=== PATIENT | female | born 1985 | race African-American/Black ===

== ENCOUNTER 2016-10-01 15:26 | Emergency (ER) | payer MEDICAID ==
[~2016-10-01] VITALS: Ht 165.1 cm; Wt 79.8 kg
[~2016-10-01 15:26] MED LIST: ALBUTEROL SULF8.5 GM INH; AZITHROMYCIN250 MG ORAL; CIPRO500 MG/51 PO; CORTISPORIN EY BOTH EYES; DOXYCYCLINE MO100 MG ORAL; IBUPROFEN600 MG ORAL; MACROBID100 MG ORAL; MONISTAT 745 GM VG; NITROFURANTOIN100 M2 ORAL; NKM; PREDNISONE20 MG ORAL; PROMETHAZINE-C118 M1 ORAL; PYRIDIUM100 MG ORAL
[2016-10-01 15:39] VITALS: BP 106/63
--- NOTE | 2016-10-01 15:42 | Emergency Room Report ---
History of Present Illness General Chief Complaint: Eye Problems Source: Patient Present Illness HPI 30-year-old female presents emergency department complaining of erythema, increased lacrimation and pain to the right eye x2 days. Patient denies trauma or fall. Patient denies purulent discharge. Patient denies ill contacts with similar symptoms. Patient states she does wear false eyelashes denies contact use denies changes in vision. Patient describes pain as scratching sensation 4/ 10 in severity. She denies nausea, vomiting, fevers, chills. Denies CP, Palpitations, LOC, AMS, dizziness, Changes in Vision, Sensation, paresthesias, or a sudden severe headache. Allergies: Coded Allergies: No Known Allergies (Unverified , 07/29/12) Patient History Past Medical History: see triage record Past Surgical History: none Pertinent Family History: none Last Menstrual Period: 09/19/16 Now: No Immunizations: UTD Reviewed Nursing Documentation: PMH: Agreed, PSxH: Agreed Nursing Documentation-PMH Past Medical History: No Stated History Review of Systems All Other Systems: negative except mentioned in HPI Physical Exam Vital Signs Date Time Temp Pulse Resp B/P Pulse Ox O2 Delivery O2 Flow Rate FiO2 10/01/16 15:33 98.2 93 14 106/63 99 Room Air Sp02 EP Interpretation: reviewed, normal General Appearance: no apparent distress, alert, GCS 15, non-toxic Head: normocephalic, atraumatic Eyes: right eye fluoroscene uptake - linear fashion in the 6 o'Clock position of the Right eye, there is no involvement of the iris or pupil. Negative Som sign, right eye photophobia, bilateral eye PERRL, bilateral eye normal inspection ENT: hearing grossly normal, normal pharynx, no angioedema, normal voice Neck: full range of motion, supple/symm/no masses Respiratory: chest non-tender, lungs clear, normal breath sounds, speaking full sentences Cardiovascular #1: regular rate, rhythm, no edema Rectal: deferred Musculoskeletal: back normal, gait/station normal, normal range of motion, non- tender, no calf tenderness Neurologic: alert, oriented x3, responsive, motor strength/tone normal, sensory intact, speech normal Psychiatric: judgement/insight normal, memory normal, mood/affect normal, no suicidal/homicidal ideation Skin: normal color, no rash, warm/dry, well hydrated Medical Decision Making PA Attestation Dr. Cedillo is my supervising Physician whom patient management has been discussed with. Diagnostic Impression: Primary Impression: Corneal abrasion, right Qualified Codes: S05.01XA - Injury of conjunctiva and corneal abrasion without foreign body, right eye, initial encounter ER Course Pt. presents to the ED c/o : Right eye pain, redness, scratching sensation and increased tearing x 2 day(s). - Pt denies Contact lens use. Ddx considered but are not limited to: corneal abrasion, acute glaucoma, globe rupture, FB, Corneal Ulcer, conjunctivitis. Iridis Vital signs: are WNL, pt. is afebrile H&PE are most consistent with: corneal abrasion ORDERS: -Tetracaine and Fluorescein Stain of the Right eye: -Increase fluorescein uptake in a linear fashion in the 6 o'Clock position of the Right eye, there is no involvement of the iris or pupil. Negative Som sign. Pt. had positive relief of pain with tetracaine drops. there was negative evidence of Fb, deep ulcer, or rupture. ED INTERVENTIONS: none at this time. DISCHARGE: At this time pt. is stable for d/c to home. Will provide printed patient care instructions, and any necessary prescriptions. Care plan and follow up instructions have been discussed with the patient prior to discharge. . Last Vital Signs Date Time Temp Pulse Resp B/P Pulse Ox O2 Delivery O2 Flow Rate FiO2 10/01/16 15:33 98.2 93 14 106/63 99 Room Air Disposition: HOME, SELF-CARE Condition: Stable Scripts Ofloxacin (OCUFLOX) 5 Ml Drops 4 DROP OP TID for 5 Days, #5 ML Prov: Kesha Dias 10/01/16 Patient Instructions: Corneal Abrasion Additional Instructions: Take medications as directed. Follow up with [facility] Psych[facility] within 72 hours. Return sooner to ED if new symptoms occur, or current symptoms become worse. Kesha Dias Oct 01, 2016 15:42
[2016-10-01] MEDS ORDERED: Tetracaine 0.5% Opth Soln RIGHT EYE ONE (15:45)
[2016-10-01] MEDS ORDERED: Fluorescein Strips RIGHT EYE ONE (15:45)
[2016-10-01] MEDS ORDERED: OCUFLOX5 ML OP (16:03)
[2016-10-01 16:17] VITALS: BP 106/63
== END 2016-10-01 16:18 | disposition home or self-care (01) ==
LOC: EMR 15:50
DX: S05.01XA Injury of conjunctiva and corneal abrasion without foreign body, right eye, initial encounter (principal); X58.XXXA Exposure to other specified factors, initial encounter; Y92.9 Unspecified place or not applicable

== ENCOUNTER 2017-03-01 23:02 | Emergency (ER) | payer MEDICAID ==
[~2017-03-01] VITALS: Ht 165.1 cm; Wt 77.1 kg
[~2017-03-01 23:02] MED LIST changes: +OCUFLOX5 ML OP
[2017-03-01] MEDS ORDERED: NKM (23:12)
--- NOTE | 2017-03-01 23:32 | Emergency Room Report ---
History of Present Illness General Chief Complaint: Vaginal Source: Patient Present Illness HPI Patient presents with complaints of vaginal discharge Urinary frequency and mild burning patient reports that she was sexually active several days ago Denies any headache or visual changes denies any chest pressures of breath She had some mild cramping in the suprapubic area Denies any foul-smelling denies any other pelvic pain or rash Allergies: Coded Allergies: No Known Allergies (Unverified , 07/29/12) Patient History Past Medical History: see triage record Pertinent Family History: none Last Menstrual Period: January Reviewed Nursing Documentation: PMH: Agreed, PSxH: Agreed Nursing Documentation-PMH Past Medical History: No Stated History Review of Systems All Other Systems: negative except mentioned in HPI Physical Exam Vital Signs Date Time Temp Pulse Resp B/P Pulse Ox O2 Delivery O2 Flow Rate FiO2 03/01/17 23:07 98.2 78 16 121/76 99 Room Air Sp02 EP Interpretation: reviewed, normal General Appearance: well appearing, no apparent distress Head: normocephalic, atraumatic Eyes: bilateral eye EOMI, bilateral eye PERRL ENT: hearing grossly normal, normal pharynx, TMs + canals normal, uvula midline Neck: full range of motion, supple, no meningismus, no bony tend Respiratory: lungs clear, normal breath sounds, no rhonchi, no respiratory distress, no retraction, no accessory muscle use Cardiovascular #1: normal peripheral pulses, regular rate, rhythm, no edema, no gallop, no JVD, no murmur Gastrointestinal: normal bowel sounds, non tender, soft, no mass, no organomegaly, non-distended, no guarding, no hernia, no pulsatile mass, no rebound Genitourinary: no CVA tenderness, other - Patient refusing pelvic exam Musculoskeletal: normal inspection Neurologic: oriented x3, responsive, experimental outboard motors mechanic III-XII nml as tested, motor strength/ tone normal, sensory intact Psychiatric: mood/affect normal Skin: normal color, no rash, warm/dry, palpation normal Lymphatic: normal inspection, no adenopathy Medical Decision Making Diagnostic Impression: Primary Impression: Vaginitis Additional Impression: UTI (lower urinary tract infection) ER Course With the patient's history and examination, multiple differentials considered, including but not limited to , ectopic , ovarian torsion, gastritis, cholecystitis, pancreatitis, appendicitis Patient did refuse a pelvic exam Therefore was treated clinically urine sample did show infectious pathology as well The patient requires close outpatient followup Labs Test 03/01/17 23:26 Urine Color Yellow Urine Appearance Clear Urine pH 7 (4.5-8.0) Urine Specific [place] 1.010 (1.005-1.035) Urine Protein Negative (NEGATIVE) Urine Glucose (UA) Negative (NEGATIVE) Urine Ketones Negative (NEGATIVE) Urine Occult Blood Negative (NEGATIVE) Urine Nitrite Negative (NEGATIVE) Urine Bilirubin Negative (NEGATIVE) Urine Urobilinogen 4 MG/DL (0.0-1.0) Urine Leukocyte Esterase 2+ (NEGATIVE) Urine RBC 0-2 /HPF (0 - 2) Urine WBC 5-10 /HPF (0 - 2) Urine Squamous Epithelial Cells Many /LPF (NONE/OCC) Urine Bacteria Few /HPF (NONE) Urine HCG, Qualitative Negative Chest X-Ray Diagnostic Results Chest X-Ray Ordered: No Last Vital Signs Date Time Temp Pulse Resp B/P Pulse Ox O2 Delivery O2 Flow Rate FiO2 03/01/17 23:07 98.2 78 16 121/76 99 Room Air Status: improved Disposition: HOME, SELF-CARE Condition: Improved Scripts Ciprofloxacin Hcl* (CIPROFLOXACIN HCL*) 500 Mg Tablet 500 MG ORAL Q12H, #14 TAB 0 Refills Prov: GALA LYNCH D.O. 03/02/17 Additional Instructions: Patient is provided with the discharge instructions notified to follow up with primary doctor in the next 2-3 days otherwise return to the er with any worsening symptoms. Please note that this report is being documented using [employer] technology. This can lead to erroneous entry secondary to incorrect interpretation by the dictating instrument. GALA LYNCH D.O. Mar 01, 2017 23:32
[2017-03-01 23:39] LABS: APPEARANCE,URINE CLEAR; KETONES,URINE NEGATIVE (NEGATIVE); LEUKOCYTE ESTERASE ,URINE 2+ (NEGATIVE); NITRITE,URINE NEGATIVE (NEGATIVE); PH,URINE 7 (4.5-8.0); PROTEIN,URINE NEGATIVE (NEGATIVE); UROBILINOGEN,URINE 4 MG/DL (0.0-1.0)
[2017-03-01] MEDS ORDERED: Lidocaine 1% MPF 10mg/ml 5ml ONE (23:42)
[2017-03-01] MEDS ORDERED: Azithromycin 250mg tab ORAL ONE (23:45)
[2017-03-01 23:55] LABS: BACTERIA,URINE FEW /HPF; RBC,URINE 0-2 /HPF (0 - 2); SQUAMOUS EPITHELIAL CELL,UR MANY /LPF (NONE/OCC)
[2017-03-02] MEDS ORDERED: CIPROFLOXACIN500 M2 ORAL (00:14)
[2017-03-02 00:17] VITALS: BP 121/76
== END 2017-03-02 00:19 | disposition home or self-care (01) ==
LOC: EMR 23:34
DX: N76.0 Acute vaginitis (principal); N39.0 Urinary tract infection, site not specified
CPT/HCPCS: 81003; 81025; 96372; 99283; J0696; Q0144

== ENCOUNTER 2017-05-23 14:15 | Emergency (ER) | payer MEDICAID ==
[~2017-05-23] VITALS: Ht 165.1 cm; Wt 77.1 kg
[~2017-05-23 14:15] MED LIST changes: +CIPROFLOXACIN500 M2 ORAL
--- NOTE | 2017-05-23 14:32 | Emergency Room Report ---
History of Present Illness General Chief Complaint: Chest Pain Source: Patient Present Illness HPI 31 yo female with no pmhx p/w chest pain for 2 days. . Localized to R side area , also complaining of b/l back and shoulder pain, sharp in nature, gradual in onset, worse with movement, multiple episodes. Occurred on rest. No SOB. Denies palpitations, diaphoresis, n/v. This is the first occurrence of chest pain. Denies fever, chills, cough, abd pain. Denies trauma. No history of malignancy, recent surgeries, immobilization, DVT PE, no OCPs Denies smoking, no family history of cardiac disease at a young age. Patient also stating that she had unprotected sex one week ago, is having some white vaginal discharge. Also complains of thick white vaginal discharge, no fever chills or abdominal pain, no dysuria or hematuria Allergies: Coded Allergies: No Known Allergies (Unverified , 07/29/12) Patient History Past Medical History: see triage record Past Surgical History: none Pertinent Family History: none Last Menstrual Period: na Reviewed Nursing Documentation: PMH: Agreed, PSxH: Agreed Nursing Documentation-PMH Past Medical History: No Stated History Physical Exam Vital Signs Date Time Temp Pulse Resp B/P (MAP) Pulse Ox O2 Delivery O2 Flow Rate FiO2 05/23/17 14:17 97.9 70 18 112/71 100 Room Air Sp02 EP Interpretation: reviewed, normal General Appearance: normal inspection, well appearing, no apparent distress, alert, GCS 15, non-toxic Head: normocephalic, atraumatic Eyes: bilateral eye normal inspection, bilateral eye PERRL, bilateral eye EOMI ENT: normal ENT inspection, normal pharynx, normal voice, moist mucus membranes Neck: normal inspection, full range of motion, supple Respiratory: normal inspection, lungs clear, normal breath sounds, no respiratory distress, no retraction, no wheezing, speaking full sentences, chest symmetrical Cardiovascular #1: normal inspection, regular rate, rhythm, no edema, normal capillary refill Cardiovascular #2: 2+ radial (R), 2+ radial (L) Gastrointestinal: normal inspection, non tender, soft, non-distended, no guarding Genitourinary: other - no vaginal DC noted Musculoskeletal: normal inspection, back normal, normal range of motion, non- tender Neurologic: normal inspection, alert, oriented x3, responsive, motor strength/ tone normal, sensory intact, normal gait, speech normal Psychiatric: normal inspection, judgement/insight normal, memory normal Skin: normal inspection, normal color, no rash, warm/dry, well hydrated, normal turgor Medical Decision Making Diagnostic Impression: Primary Impression: Chest pain Additional Impression: Vaginal discharge ER Course 31 yo F with no sig pmhx p/w chest pain Plan: musculoskeletal CP/costochondritis vs. pneumothorax vs. gastritis/GERD vs PE PE less likely given history and physical examination, not hypoxic/tachycardic, no risk factors, PERC negative. ACS less likely given age/history Pt also with white vaginal DC STD vs. yeast infection Plan: NSAIDs, EKG, CXR Anticipate DC home as patient appears clinically well. will empirically tx for STD ER course: Patient was treated NSAIDs with improvement of pain. VS were stable and normal during ED stay. Pt ambulating around the ED Patient remains well appearing in ED. ABX empirically given to patient for STD Disposition: Patient will be discharged to home with a prescription of motrin. Pt also told to fu with OBGYN within 1 week Strict precautions discussed with patient on when to emergently return to the ED : this includes worsening/severe chest pain, palpitations, shortness of breath, syncopal episodes, fever or chills, which may indicate severe illness. Patient verbalized understanding. Patient instructed to follow up with their PMD within the next 2 days. Patient agrees with plan. Please note that this Emergency Department Report was dictated using [employer] chaser technology software, occasionally this can lead to erroneous entry secondary to interpretation by the dictation equipment. Laboratory Tests Test 05/23/17 14:28 05/23/17 15:43 Urine HCG, Qualitative Negative Urine Color Pale yellow Urine Appearance Cloudy Urine pH 6 (4.5-8.0) Urine Specific [place] 1.020 (1.005-1.035) Urine Protein Negative (NEGATIVE) Urine Glucose (UA) Negative (NEGATIVE) Urine Ketones Negative (NEGATIVE) Urine Occult Blood Negative (NEGATIVE) Urine Nitrite Negative (NEGATIVE) Urine Bilirubin Negative (NEGATIVE) Urine Urobilinogen Normal MG/DL (0.0-1.0) Urine Leukocyte Esterase 1+ (NEGATIVE) H Urine RBC 0-2 /HPF (0 - 2) Urine WBC 2-4 /HPF (0 - 2) Urine Squamous Epithelial Cells Many /LPF (NONE/OCC) H Urine Amorphous Sediment Moderate /LPF (NONE) H Urine Bacteria Few /HPF (NONE) Chlamydia trachomatis RNA Pending Neisseria gonorrhoeae RNA Pending EKG Diagnostic Results Rate: normal Rhythm: NSR ST Segments: no acute changes ASA given to the pt in ED: No Rhythm Strip Diag. Results EP Interpretation: yes Rate: 70 Rhythm: NSR, no PVC's, no ectopy Chest X-Ray Diagnostic Results Chest X-Ray Diagnostic Results : Chest X-Ray Ordered: Yes # of Views/Limited/Complete: 1 View Indication: Chest Pain EP Interpretation: Yes Interpretation: no consolidation, no effusion, no pneumothorax, no acute cardiopulmonary disease Impression: No acute disease Interpreting ER Provider: Electronically signed by Carlos Bee MD Last Vital Signs Date Time Temp Pulse Resp B/P (MAP) Pulse Ox O2 Delivery O2 Flow Rate FiO2 05/23/17 14:17 97.9 70 18 112/71 100 Room Air Disposition: HOME, SELF-CARE Condition: Improved Scripts Ibuprofen* (MOTRIN*) 600 Mg Tablet 600 MG ORAL Q8H Y for For Pain, #30 TAB 0 Refills Prov: Carlos Bee M.D. 05/23/17 Carlos Bee M.D. May 23, 2017 14:32
[2017-05-23 14:35] VITALS: BP 112/71
[2017-05-23] MEDS ORDERED: IBUPROFEN600 MG ORAL (15:18)
[2017-05-23 15:35] VITALS: BP 119/78
[2017-05-23] MEDS ORDERED: Azithromycin 250mg tab ORAL ONE (15:45)
[2017-05-23] MEDS ORDERED: Lidocaine 1% MPF 10mg/ml 5ml ONE (15:56)
[2017-05-23] MEDS ORDERED: Lidocaine 1% MPF 10mg/ml 5ml INJ ONE (16:00)
[2017-05-23 16:17] LABS: APPEARANCE,URINE CLOUDY; KETONES,URINE NEGATIVE (NEGATIVE); LEUKOCYTE ESTERASE ,URINE 1+ (NEGATIVE); NITRITE,URINE NEGATIVE (NEGATIVE); PH,URINE 6 (4.5-8.0); PROTEIN,URINE NEGATIVE (NEGATIVE); UROBILINOGEN,URINE NORMAL MG/DL (0.0-1.0)
[2017-05-23 16:24] VITALS: BP 119/78
[2017-05-23 16:30] LABS: RBC,URINE 0-2 /HPF (0 - 2); SQUAMOUS EPITHELIAL CELL,UR MANY /LPF (NONE/OCC)
[2017-05-23 16:31] LABS: AMORPHOUS SEDIMENT,UR MODERATE /LPF; BACTERIA,URINE FEW /HPF
--- NOTE | 2017-05-24 10:51 | Diagnostic Imaging Report ---
Indication: PAIN Technique: One view of the chest Comparison: none Findings: Lungs and pleural spaces are clear. Heart size is normal. Impression: No acute process This agrees with the preliminary interpretation provided overnight by [facility]. This agrees with the preliminary interpretation provided by the emergency room physician
== END 2017-05-23 17:00 | disposition home or self-care (01) ==
LOC: EMR 16:59
DX: R07.89 Other chest pain (principal); N89.8 Other specified noninflammatory disorders of vagina
CPT/HCPCS: 71010; 81001; 81025; 87491; 87590; 93005; 96372; 99283; J0696; Q0144

== ENCOUNTER 2018-09-23 13:09 | Emergency (ER) | payer SELFPAY ==
[~2018-09-23] VITALS: Ht 167.6 cm; Wt 70.3 kg
[2018-09-23 13:15] VITALS: BP 115/75
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
[2018-09-23] MEDS ORDERED: Azithromycin 250mg tab ORAL ONE (13:45)
[2018-09-23] MEDS ORDERED: Lidocaine 1% MPF 10mg/ml 5ml INJ ONE (13:45)
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
[2018-09-23] MEDS ORDERED: ROBAXIN-750750 MG PO (13:57)
[2018-09-23] MEDS ORDERED: TYLENOL EXTRA500 MG ORAL (13:57)
--- NOTE | 2018-09-23 14:08 | NUR ---
ED Nurse Note: Pt discharge instruction provided w/ prescription, id band removed, pt education done via discussion and handout, pt verbalized understanding and agrees with plan, pt advised to follow up with pcp regarding pt's condition, pt advised to return to ed if s/s worsen or new s/s develop.
[2018-09-23 14:13] VITALS: BP 118/98
== END 2018-09-23 14:08 | disposition home or self-care (01) ==
LOC: EMR 13:40
DX: S16.1XXA Strain of muscle, fascia and tendon at neck level, initial encounter (principal); V43.52XA Car driver injured in collision with other type car in traffic accident, initial encounter; Y92.410 Unspecified street and highway as the place of occurrence of the external cause; S00.93XA Contusion of unspecified part of head, initial encounter
CPT/HCPCS: 96372; 99284; J0696; 96374

== ENCOUNTER 2019-05-23 21:58 | Emergency (ER) | payer MEDICAID, OTHER ==
[~2019-05-23] VITALS: Ht 165.1 cm; Wt 74.8 kg
[~2019-05-23 21:58] MED LIST changes: +ROBAXIN-750750 MG PO; +TYLENOL EXTRA500 MG ORAL
--- NOTE | 2019-05-23 22:32 | NUR ---
ED Nurse Note: PT AMBULATED TO ED C/O URINARY URGENCY AND DISCOMFORT WHILE URINATING X 2 HOURS. PT STATES "I SAW SOME SPOTS OF BLOOD IN MY PEE". ao4. nad. vss urine collected; sent down to lab.
[2019-05-23] MEDS ORDERED: Cephalexin 500mg cap ORAL ONE (22:45)
[2019-05-23] MEDS ORDERED: Phenazopyridine 200mg tab ORAL ONE (22:45)
--- NOTE | 2019-05-23 22:46 | NUR ---
Marcos dahl in EDM - 05/23/19 at 2251 by [facility] ED Nurse Note: urine collected; sent down to lab.
[2019-05-23 22:51] VITALS: BP 141/83
[2019-05-23] MEDS ORDERED: PHENAZOPYRIDIN200 MG ORAL (23:01)
[2019-05-23] MEDS ORDERED: CEPHALEXIN500 MG ORAL (23:01)
[2019-05-23] MEDS ORDERED: IBUPROFEN600 MG ORAL (23:01)
--- NOTE | 2019-05-23 23:02 | Emergency Room Report ---
History of Present Illness General Chief Complaint: Female Urogenital Problems Source: Patient Present Illness HPI This is a 33-year-old female with no past medical history. She presents with chief complaint of dysuria, frequency, urgency and hematuria. Onset this evening. Worse with urination. Pain is suprapubic and 7 out of 10. Also felt bloated. No trauma. No other complaint. Allergies: Coded Allergies: No Known Allergies (Unverified , 07/29/12) Patient History Past Medical History: see triage record, old chart reviewed Past Surgical History: none Pertinent Family History: none Social History: Denies: smoking Last Menstrual Period: 05/11/19 Now: No Immunizations: other Reviewed Nursing Documentation: PMH: Agreed; PSxH: Agreed Nursing Documentation-PMH Past Medical History: No Stated History Review of Systems Eye: Denies: eye pain, blurred vision ENT: Denies: ear pain, nose congestion, throat swelling Respiratory: Denies: cough, shortness of breath Cardiovascular: Denies: chest pain, palpitations Gastrointestinal: Denies: abdominal pain, diarrhea, nausea, vomiting Genitourinary: Reports: dysuria, frequency, hematuria, urgency Musculoskeletal: Denies: back pain, joint pain Skin: Denies: rash Neurological: Denies: headache, numbness Endocrine: Denies: increased thirst, increased urine Hematologic/Lymphatic: Denies: easy bruising All Other Systems: negative except mentioned in HPI Physical Exam Vital Signs Date Time Temp Pulse Resp B/P (MAP) Pulse Ox O2 Delivery O2 Flow Rate FiO2 05/23/19 22:09 98.4 81 16 141/83 (102) 100 Room Air Vitals normal Sp02 EP Interpretation: reviewed, normal General Appearance: well appearing, no apparent distress, alert Head: normocephalic, atraumatic Eyes: bilateral eye PERRL, bilateral eye EOMI ENT: hearing grossly normal, normal pharynx Neck: full range of motion, supple, no meningismus Respiratory: chest non-tender, lungs clear, normal breath sounds Cardiovascular #1: regular rate, rhythm, no murmur Gastrointestinal: normal bowel sounds, non tender, no mass, no organomegaly, no bruit, non-distended Musculoskeletal: back normal, gait/station normal, normal range of motion Psychiatric: mood/affect normal Medical Decision Making Diagnostic Impression: Primary Impression: UTI (lower urinary tract infection) ER Course Patient with symptoms consistent with UTI/cystitis. No evidence of any pyelonephritis or retention. Will discharge home. Last Vital Signs Date Time Temp Pulse Resp B/P (MAP) Pulse Ox O2 Delivery O2 Flow Rate FiO2 05/23/19 22:51 98.4 73 16 141/83 100 Room Air Status: improved Disposition: HOME, SELF-CARE Condition: Stable Scripts Ibuprofen* (MOTRIN*) 600 Mg Tablet 600 MG ORAL THREE TIMES A DAY, #30 TAB 0 Refills Prov: Lexa Yee MD 05/23/19 Phenazopyridine Hcl* (PYRIDIUM*) 200 Mg Tablet 200 MG ORAL THREE TIMES A DAY, #6 TAB 0 Refills Prov: Lexa Yee MD 05/23/19 Cephalexin* (KEFLEX*) 500 Mg Capsule 500 MG ORAL TID, #21 CAP Prov: Lexa Yee MD 05/23/19 Patient Instructions: Urinary Tract Infection Additional Instructions: Follow-up with your doctor in 7 days. Return if symptoms worsen. Lexa Yee MD May 23, 2019 23:02
[2019-05-23 23:04] LABS: APPEARANCE,URINE CLEAR; BILIRUBIN, URINE NEGATIVE (NEGATIVE); COLOR,URINE PALE YELLOW; GLUCOSE, URINE (UA) NEGATIVE (NEGATIVE); KETONES,URINE NEGATIVE (NEGATIVE); LEUKOCYTE ESTERASE ,URINE 3+ (NEGATIVE); NITRITE,URINE NEGATIVE (NEGATIVE); PH,URINE 7 (4.5-8.0); PROTEIN,URINE 3+ (NEGATIVE); UROBILINOGEN,URINE NORMAL MG/DL (0.0-1.0)
[2019-05-23 23:15] VITALS: BP 141/83
--- NOTE | 2019-05-23 23:15 | NUR ---
ER DISCHARGE NOTE: Patient is cleared to be discharged per ERMD, pt is aox4, on room air, with stable vital signs. pt was given dc and prescription instructions, pt was able to verbalize understanding, pt id band removed. pt is able to ambulate with steady gait. pt took all belongings.
== END 2019-05-23 23:15 | disposition home or self-care (01) ==
LOC: EMR 22:45
DX: N39.0 Urinary tract infection, site not specified (principal)
CPT/HCPCS: 81003; 87086; 87181; 99283

== ENCOUNTER 2019-09-08 08:56 | Emergency (ER) | payer OTHER ==
[~2019-09-08] VITALS: Ht 165.1 cm; Wt 77.1 kg
[~2019-09-08 08:56] MED LIST changes: +CEPHALEXIN500 MG ORAL; +MUPIROCIN22 GM TOPIC; +PHENAZOPYRIDIN200 MG ORAL; +SULFAMETHOXAZO1 EAC2 ORAL
[2019-09-08 09:00] VITALS: BP 124/84
--- NOTE | 2019-09-08 09:00 | NUR ---
ED Nurse Note: Pt ambulated to ED with the c/o of CP with 7/10 pain scale, non radiating. Pt verbalized she's having dry cough for a week. Placed on bed, hooked to equipment monitor phototypesetting. EKG 12 lead done. Pt is awake, calm, cooperative; AOx4 able to verbalized her needs and able to follow commands.Repositioned to comfortable position. Established Iv site on RT AC with 20G, intact and patent. Urine and blood specimen obtained; sent to labs. Will continue to monitor.
--- NOTE | 2019-09-08 09:29 | Emergency Room Report ---
History of Present Illness General Chief Complaint: Chest Pain Source: Patient Present Illness HPI Disclaimer: Please note that this report is being documented using DRAGON technology. This can lead to erroneous entry secondary to incorrect interpretation by the dictating instrument. HPI: 33-year-old female presents for evaluation of chest pain. Symptoms have been intermittent for the past 2 weeks. She had a URI several weeks ago but improved only to start coughing again a few days ago. She is complaining of soreness over the right chest especially while coughing but woke up this morning complaining of a knot in the right breast which she cannot feel anymore. Said it was very painful this morning. Denies any fevers, chills, vomiting, diarrhea. Takes no medications. Non-smoker. PMH: Denies PSH: Denies Allergies: Denies Social Hx: Occasional alcohol use. Denies tobacco use Allergies: Coded Allergies: No Known Allergies (Unverified , 07/29/12) Nursing Documentation-PMH Past Medical History: No Stated History Review of Systems All Other Systems: negative except mentioned in HPI Physical Exam Vital Signs Date Time Temp Pulse Resp B/P (MAP) Pulse Ox O2 Delivery O2 Flow Rate FiO2 09/08/19 08:58 98.1 78 15 126/79 (95) 99 Room Air General: Awake and alert, no acute distress HEENT: NC/AT. EOMI. Neck: Supple, trachea midline Chest Wall: Tender to palpation over the sternum and right chest wall. No deformity. Cardiovascular: RRR. S1 and S2 normal. No murmur appreciated Resp: Normal work of breathing. No cough, wheezing or crackles appreciated Abdomen: Abdomen is soft, nondistended. Nontender Skin: Intact. No abrasions, laceration or rash over the exposed skin MSK: Normal tone and bulk. Moving all extremities. No obvious deformity. Neuro: Awake and alert. Mentating appropriately. Medical Decision Making ER Course 30-year-old female presents for evaluation of cough and chest pain. Likely this musculoskeletal nature of the walking pneumonia, viral syndrome, ACS are also on the differential. We will start cardiac work-up with EKG, chest x-ray and labs. Motrin given for chest pain. Laboratory Tests Test 09/08/19 09:15 White Blood Count 5.7 K/UL (4.8-10.8) Red Blood Count 3.96 M/UL (4.20-5.40) L Hemoglobin 12.3 G/DL (12.0-16.0) Hematocrit 36.1 % (37.0-47.0) L Mean Corpuscular Volume 91 FL (80-99) Mean Corpuscular Hemoglobin 31.1 PG (27.0-31.0) H Mean Corpuscular Hemoglobin Concent 34.2 G/DL (32.0-36.0) Red Cell Distribution Width 10.3 % (11.6-14.8) L Platelet Count 237 K/UL (150-450) Mean Platelet Volume 6.4 FL (6.5-10.1) L Neutrophils (%) (Auto) 52.4 % (45.0-75.0) Lymphocytes (%) (Auto) 38.9 % (20.0-45.0) Monocytes (%) (Auto) 4.6 % (1.0-10.0) Eosinophils (%) (Auto) 3.1 % (0.0-3.0) H Basophils (%) (Auto) 1.1 % (0.0-2.0) Sodium Level 139 MMOL/L (136-145) Potassium Level 3.8 MMOL/L (3.5-5.1) Chloride Level 105 MMOL/L (98-107) Carbon Dioxide Level 26 MMOL/L (21-32) Anion Gap 8 mmol/L (5-15) Blood Urea Nitrogen 6 mg/dL (7-18) L Creatinine 0.8 MG/DL (0.55-1.30) Estimate Glomerular Filtration Rate > 60 mL/min (>60) Glucose Level 102 MG/DL (74-106) Calcium Level 8.6 MG/DL (8.5-10.1) Total Bilirubin 0.4 MG/DL (0.2-1.0) Aspartate Amino Transferase (AST) 16 U/L (15-37) Alanine Aminotransferase (ALT) 16 U/L (12-78) Alkaline Phosphatase 66 U/L (46-116) Troponin I 0.000 ng/mL (0.000-0.056) Total Protein 7.1 G/DL (6.4-8.2) Albumin 3.5 G/DL (3.4-5.0) Globulin 3.6 g/dL Albumin/Globulin Ratio 1.0 (1.0-2.7) EKG Diagnostic Results EKG Time: 09:16 Rate: normal Rhythm: NSR ST Segments: no acute changes Other Impression Sinus rhythm, normal axis, normal intervals, no ST segment changes Rhythm Strip Diag. Results Rhythm Strip Time: 09:16 EP Interpretation: yes Rate: 70s Rhythm: NSR, no PVC's, no ectopy Chest X-Ray Diagnostic Results Chest X-Ray Diagnostic Results : Chest X-Ray Ordered: Yes # of Views/Limited/Complete: 1 View Indication: Chest Pain EP Interpretation: Yes Interpretation: no consolidation, no effusion, no pneumothorax, no acute cardiopulmonary disease Impression: No acute disease Electronically Signed by: Electronically signed by Dr. Dennis Montes Reevaluation Time: 10:50 Last Vital Signs Date Time Temp Pulse Resp B/P (MAP) Pulse Ox O2 Delivery O2 Flow Rate FiO2 09/08/19 08:58 98.1 78 15 126/79 (95) 99 Room Air Reevaluation Impression EKG, lab work, x-ray are unremarkable. Patient is well-appearing with stable vital signs. Believe is likely chest wall pain secondary to persistent coughing or costochondritis-like syndrome. She was stable for outpatient treatment. We will continue NSAIDs. Discussed follow-up with PMD. She understands and agrees with this treatment plan will be discharged home. Disposition: HOME, SELF-CARE Condition: Stable Scripts Ibuprofen* (MOTRIN*) 600 Mg Tablet 600 MG ORAL Q8H PRN for For Pain, #30 TAB 0 Refills Prov: Dennis Montes MD 09/08/19 Dennis Montes MD Sep 08, 2019 09:29
[2019-09-08 09:42] LABS: BASOPHILS % (AUTO) 1.1 % (0.0-2.0); EOSINOPHILS % (AUTO) 3.1 % (0.0-3.0); HEMATOCRIT 36.1 % (37.0-47.0); HEMOGLOBIN 12.3 G/DL (12.0-16.0); LYMPHOCYTES % (AUTO) 38.9 % (20.0-45.0); MEAN CORPUSCULAR VOLUME 91 FL (80-99); MONOCYTES % (AUTO) 4.6 % (1.0-10.0); NEUTROPHILS % (AUTO) 52.4 % (45.0-75.0); PLATELET COUNT 237 K/UL (150-450); RED BLOOD COUNT 3.96 M/UL (4.20-5.40); RED CELL DISTRIBUTION WIDTH 10.3 % (11.6-14.8); WHITE BLOOD COUNT 5.7 K/UL (4.8-10.8)
[2019-09-08 09:57] LABS: ANION GAP 8 mmol/L (5-15); BLOOD UREA NITROGEN 6 mg/dL (7-18); CALCIUM 8.6 MG/DL (8.5-10.1); CARBON DIOXIDE 26 MMOL/L (21-32); CHLORIDE 105 MMOL/L (98-107); CREATININE 0.8 MG/DL (0.55-1.30); POTASSIUM 3.8 MMOL/L (3.5-5.1); SODIUM 139 MMOL/L (136-145)
[2019-09-08 10:02] LABS: ALANINE AMINOTRANSFERASE 16 U/L (12-78); ALBUMIN 3.5 G/DL (3.4-5.0); ALKALINE PHOSPHATASE 66 U/L (46-116); ASPARTATE AMINO TRANSFERASE 16 U/L (15-37); BILIRUBIN,TOTAL 0.4 MG/DL (0.2-1.0)
[2019-09-08 10:40] VITALS: BP 122/84
--- NOTE | 2019-09-08 10:40 | NUR ---
ER DISCHARGE NOTE: Pt is cleared to be discharged per ERMD, pt is AOx4, on room air, with stable vital signs. pt was given dc and prescription instructions, pt was able to verbalize understanding, pt id band and iv site removed without complications. pt is able to ambulate with steady gait. pt took all belongings.
[2019-09-08] MEDS ORDERED: IBUPROFEN600 MG ORAL (10:41)
--- NOTE | 2019-09-08 12:06 | Diagnostic Imaging Report ---
Indication: Chest pain Technique: One view of the chest Comparison: 05/23/2017 Findings: Lungs and pleural spaces are clear. Heart size is normal. Centimeters no significant interim change Impression: No acute process
== END 2019-09-08 11:00 | disposition home or self-care (01) ==
LOC: EMR 09:30
DX: R07.9 Chest pain, unspecified (principal); R05 Cough
CPT/HCPCS: 36415; 71045; 80053; 84484; 85025; 93005; Z7502; 99283

== ENCOUNTER 2020-01-11 14:20 | Emergency (ER) | payer OTHER ==
[~2020-01-11] VITALS: Ht 165.1 cm; Wt 72.6 kg
[2020-01-11 14:43] VITALS: BP 129/81
--- NOTE | 2020-01-11 14:48 | NUR ---
ED Nurse Note: pt with urine sample sent. pt eval by MARY
--- NOTE | 2020-01-11 15:01 | NUR ---
ED Nurse Note: pt awaiting ultrasound. no n/v/d
[2020-01-11 15:11] LABS: BILIRUBIN, URINE NEGATIVE (NEGATIVE); GLUCOSE, URINE (UA) NEGATIVE (NEGATIVE); KETONES,URINE 1+ (NEGATIVE); LEUKOCYTE ESTERASE ,URINE 2+ (NEGATIVE); NITRITE,URINE NEGATIVE (NEGATIVE); PH,URINE 5 (4.5-8.0); PROTEIN,URINE 3+ (NEGATIVE); UROBILINOGEN,URINE 1 MG/DL (0.0-1.0)
[2020-01-11 15:33] LABS: APPEARANCE,URINE SLIGHTLY CLOUDY; COLOR,URINE BROWN
--- NOTE | 2020-01-11 15:40 | NUR ---
ED Nurse Note: portable US at bs to perform procedure. no new s/s
--- NOTE | 2020-01-11 16:59 | Emergency Room Report ---
History of Present Illness General Chief Complaint: Vaginal Source: Patient Present Illness HPI 34-year-old female with no significant past medical history here complaining of 1 day of abnormal uterine bleeding. Patient reports that she got her last menstrual period beginning of December however was last sexually active second week of December and did a test at home which tested negative yesterday. Patient reports that she has been having some different shape and color of her usual menses. Complains of lower abdominal pain and cramping. Is afraid that she is internally bleeding. Is requesting to be seen by a box nailer here. Is requesting an ultrasound to see if she has fibroids. Appears to be very anxious. Complains of urinary frequency. Denies any vaginal discharge. Patient is G1, P1 at this time. Denies tobacco smoke, taking control, and other associate symptoms. Denies chest pain, shortness of breath, palpitation, headache and dizziness. Denies fever and chills, cough and congestion. Allergies: Coded Allergies: No Known Allergies (Unverified , 07/29/12) COVID-19 Screening Contact w/high risk pt: No Recent Travel to affected area: No Experienced COVID-19 symptoms?: No Patient History Past Medical History: see triage record Past Surgical History: none Pertinent Family History: none Now: No Immunizations: UTD Reviewed Nursing Documentation: PMH: Agreed; PSxH: Agreed Nursing Documentation-PMH Past Medical History: No Stated History Review of Systems All Other Systems: negative except mentioned in HPI Physical Exam Vital Signs Date Time Temp Pulse Resp B/P (MAP) Pulse Ox O2 Delivery O2 Flow Rate FiO2 01/11/20 14:27 99.1 79 16 129/81 (97) 100 Room Air Sp02 EP Interpretation: reviewed, normal General Appearance: no apparent distress, alert, GCS 15, non-toxic Head: normocephalic, atraumatic Eyes: bilateral eye normal inspection, bilateral eye PERRL ENT: hearing grossly normal, normal pharynx, no angioedema, normal voice Neck: full range of motion, supple/symm/no masses Respiratory: chest non-tender, lungs clear, normal breath sounds, no rhonchi, speaking full sentences Cardiovascular #1: regular rate, rhythm, no edema, no murmur Gastrointestinal: normal bowel sounds, non tender, soft, non-distended, no guarding, no rebound Genitourinary: no CVA tenderness Musculoskeletal: back normal Neurologic: alert, motor strength/tone normal, oriented x3, sensory intact, responsive, speech normal Psychiatric: judgement/insight normal, memory normal, mood/affect normal, no suicidal/homicidal ideation Skin: no rash Lymphatic: no adenopathy Medical Decision Making PA Attestation All my diagnosis and treatment plans were reviewed ad discussed with my supervising physician Dr. Ayon Diagnostic Impression: Primary Impression: DUB (dysfunctional uterine bleeding) Additional Impression: UTI (lower urinary tract infection) ER Course 34-year-old female with no significant past medical history here complaining of 1 day of abnormal uterine bleeding. Patient reports that she got her last menstrual period beginning of December however was last sexually active second week of December and did a test at home which tested negative yesterday. Patient reports that she has been having some different shape and color of her usual menses. Complains of lower abdominal pain and cramping. Is afraid that she is internally bleeding. Is requesting to be seen by a box nailer here. Is requesting an ultrasound to see if she has fibroids. Appears to be very anxious. Complains of urinary frequency. Denies any vaginal discharge. Patient is G1, P1 at this time. Denies tobacco smoke, taking control, and other associate symptoms. Denies chest pain, shortness of breath, palpitation, headache and dizziness. Denies fever and chills, cough and congestion. Ddx considered but are not limited to: UTI, pyelonephritis, urinary incontinence , prolapsed bladder, threatened , ectopic , uterine fibroids, ovarian cyst, dysfunctional uterine bleeding Vital signs: are WNL, pt. is afebrile H&PE are most consistent with: Dysfunctional uterine bleeding, UTI ORDERS: UA, urine cx, Tylenol as patient requested, Macrobid , Urine , pelvic ultrasound ED INTERVENTIONS: None required at this time. DISCHARGE: At this time pt. is stable for d/c to home. Will provide printed patient care instructions, and any necessary prescriptions. Care plan and follow up instructions have been discussed with the patient prior to discharge. Patient to follow-up primary doctor, also follow-up with your box nailer if the symptoms continue at this time symptoms appear to be due to onset of her menstrual period and they have been been present for long enough to have any other differential diagnoses at this time. Also patient tested negative for . If worsening symptoms return to the emergency room. CT/MRI/US Diagnostic Results CT/MRI/US Diagnostic Results : Imaging Test Ordered: Pelvic ultrasound Impression Within normal limits Last Vital Signs Date Time Temp Pulse Resp B/P (MAP) Pulse Ox O2 Delivery O2 Flow Rate FiO2 01/11/20 14:43 99.1 79 16 129/81 100 Room Air Disposition: HOME, SELF-CARE Condition: Stable Scripts Acetaminophen* (TYLENOL EXTRA STRENGTH*) 500 Mg Tablet 500 MG ORAL Q8H PRN for Prn Headache/Temp > 101, #30 TAB 0 Refills Prov: Cassandra Caldwell 01/11/20 Nitrofurantoin Monohyd/M-Cryst* (MACROBID 100 MG*) 100 Mg Capsule 100 MG ORAL EVERY 12 HOURS for 7 Days, #14 CAP Prov: Cassandra Caldwell 01/11/20 Referrals: [facility],REFERRING (PCP) Patient Instructions: Dysfunctional Uterine Bleeding, Urinary Tract Infection, [id number] Additional Instructions: Follow-up with your primary doctor for referral to the box nailer if your symptoms continue. at this time the uterine fibroids or any abnormality noted in your abdomen and pelvis. Possible start of abnormal uterine bleeding secondary to your menses. test is negative. For further evaluation, Pap smear and pelvic exam need to follow-up with a box nailer at this time. Cassandra Caldwell Jan 11, 2020 16:59
[2020-01-11] MEDS ORDERED: NITROFURANTOIN100 M2 ORAL (17:07)
[2020-01-11] MEDS ORDERED: TYLENOL EXTRA500 MG ORAL (17:07)
--- NOTE | 2020-01-11 17:14 | NUR ---
ED Nurse Note: Pt cleared by health care Provider for discharge. DC instructions/prescription was given and explained to pt and verbalized understanding of teachings. All medical devices such as ID band removed. Pt is AAO x4, ambulatory and left with all personal belongings.
[2020-01-11 17:15] VITALS: BP 129/81
--- NOTE | 2020-01-11 17:51 | Diagnostic Imaging Report ---
Indication: Pelvic pain and bleeding since yesterday, negative test Technique: Transabdominal and transvaginal images. Doppler interrogation of the ovaries Comparison: none Findings: Uterus is retroverted, measures 11.1 cm in length by 6 cm AP. The endometrium measures 6 mm thick. No myometrial abnormality. The right ovary measures 2.3 cm length. Left ovary measures 2.8 cm length. Both ovaries demonstrate normal blood flow. No free fluid seen in the cul-de-sac. Impression: Essentially unremarkable exam
== END 2020-01-11 17:16 | disposition home or self-care (01) ==
LOC: EMR 14:57
DX: N93.9 Abnormal uterine and vaginal bleeding, unspecified (principal); N39.0 Urinary tract infection, site not specified
CPT/HCPCS: 76830; 76856; 81003; 81025; 87086; Z7502; 99284